=== PATIENT | male | born 1975 | race Caucasian/White ===

== ENCOUNTER 2017-05-02 18:22 | Emergency (ER) | payer OTHER ==
[~2017-05-02] VITALS: Ht 198.1 cm; Wt 104.3 kg
[2017-05-02 19:50] VITALS: BP 135/89
[2017-05-02 19:53] LABS: MEAN CORPUSCULAR HEMOGLOBIN 34.5 PG (27.0-31.0); MEAN CORPUSCULAR HGB CONC 31.6 G/DL (32.0-36.0); MEAN CORPUSCULAR VOLUME 109 FL (80-99); MEAN PLATELET VOLUME 12.6 FL (6.5-10.1); PLATELET COUNT 85 K/UL (150-450); RED BLOOD COUNT 3.91 M/UL (4.70-6.10); RED CELL DISTRIBUTION WIDTH 14.1 % (11.6-14.8); WHITE BLOOD COUNT 5.7 K/UL (4.8-10.8)
[2017-05-02 20:23] LABS: ALANINE AMINOTRANSFERASE 154 U/L (12-78); ALCOHOL < 3 mg/dL; ANION GAP 10 (5-15); ASPARTATE AMINO TRANSFERASE 430 U/L (15-37); CALCIUM 8.3 MG/DL (8.5-10.1); CARBON DIOXIDE 29 MMOL/L (21-32); CHLORIDE 90 MMOL/L (98-107); CKMB 0.7 NG/ML (0.0-3.6); CREATININE 0.8 MG/DL (0.55-1.30); GLOMERULAR FILTRATION RATE > 60 mL/min (>60); SODIUM 129 MMOL/L (136-145); TOTAL PROTEIN 7.3 G/DL (6.4-8.2)
[2017-05-02 20:25] LABS: ACETAMINOPHEN < 10.0 MCG/ML (10-30)
[2017-05-02 21:02] LABS: BILIRUBIN,DIRECT 0.7 MG/DL (0.0-0.3)
[2017-05-02 21:05] LABS: BAND NEUTROPHILS % (MANUAL) 3 % (0-8); EOSINOPHILS % (MANUAL) 1 % (0-3); LYMPHOCYTES % (MANUAL) 26 % (20-45); NEUTROPHILS % (MANUAL) 64 % (45-75); TOTAL CELLS COUNTED 100
[2017-05-02 21:06] LABS: ANISOCYTOSIS 1+; POLYCHROMASIA 1+
[2017-05-02 21:07] LABS: MACROCYTES 2+; PLATELET MORPHOLOGY NORMAL
[2017-05-02 21:08] LABS: BASOPHILS % (MANUAL) 0 % (0-2); PLATELET ESTIMATE DECREASED
[2017-05-02 21:28] VITALS: BP 135/89
--- NOTE | 2017-05-02 22:58 | Emergency Room Report ---
History of Present Illness General Chief Complaint: Seizure Source: Patient Present Illness HPI 42-year-old male presents ED for evaluation. Per EMS patient had a witnessed seizure at grocery store. Last for several seconds. Upon arrival patient states he feels okay. Does not remember what happened. Patient denies any history of seizures. Denies any headaches, blurry vision. Denies any fevers or chills. Patient has history of anxiety past takes Zoloft and takes Xanax. States his last drink was 5 days ago. Patient does not drink everyday but states he does drink often. No other aggravating or relieving factors. Denies any other associated symptoms Allergies: Coded Allergies: No Known Allergies (Unverified , 05/02/17) Patient History Past Medical History: psych hx Past Surgical History: none Pertinent Family History: none Social History: Denies: smoking, alcohol use, drug use Immunizations: UTD Reviewed Nursing Documentation: PMH: Agreed, PSxH: Agreed Nursing Documentation-PMH Past Medical History: No Stated History Review of Systems All Other Systems: negative except mentioned in HPI Physical Exam Vital Signs Date Time Temp Pulse Resp B/P (MAP) Pulse Ox O2 Delivery O2 Flow Rate FiO2 05/02/17 18:27 98.4 91 18 107/70 97 Room Air Sp02 EP Interpretation: reviewed, normal General Appearance: no apparent distress, alert, GCS 15, non-toxic Head: normocephalic, atraumatic Eyes: bilateral eye normal inspection, bilateral eye PERRL ENT: hearing grossly normal, normal pharynx, no angioedema, normal voice Neck: full range of motion, supple/symm/no masses Respiratory: chest non-tender, lungs clear, normal breath sounds, speaking full sentences Cardiovascular #1: regular rate, rhythm, no edema Cardiovascular #2: 2+ carotid (R), 2+ carotid (L), 2+ radial (R), 2+ radial (L) , 2+ dorsalis pedis (R), 2+ dorsalis pedis (L) Gastrointestinal: normal bowel sounds, non tender, soft, non-distended, no guarding, no rebound Rectal: deferred Genitourinary: normal inspection, no CVA tenderness Musculoskeletal: back normal, gait/station normal, normal range of motion, non- tender Neurologic: alert, oriented x3, responsive, motor strength/tone normal, sensory intact, speech normal Psychiatric: judgement/insight normal, memory normal, mood/affect normal, no suicidal/homicidal ideation Reflexes: 3+ bicep (R), 3+ bicep (L), 3+ tricep (R), 3+ tricep (L), 3+ knee (R) , 3+ knee (L) Skin: normal color, no rash, warm/dry, well hydrated Lymphatic: no adenopathy Medical Decision Making Diagnostic Impression: Primary Impression: Seizure disorder ER Course Hospital Course 42-year-old M presents to ED status post seizure Differential diagnosis includes- breakthrough seizure, alcohol abuse, intracranial injury Clinical course Patient placed on stretcher. Initial history and physical I ordered labs, IV fluids, CT brain Labs-K 3.0, no leukocytosis, hemoglobin/hematocrit stable. EKG - NSR, no acute ischemic changes interpreted by me CT Brain ok Potassium repleted. I discussed findings with patient. Seizure could be related to alcohol withdrawal versus anxiety. I did offer patient option for admission but he declined. Patient states he will followup with his PMD I did give patient referral options for PMD if he is unable to contact his doctor Patient allowed to rest is now awake alert oriented x3. ambulating without difficulty. Family is at bedside and can take patient home. Diagnosis - seizure disorder stable and discharged to home. Followup with PMD. Return to ED if symptoms recur or worsen Labs Test 05/02/17 19:27 White Blood Count 5.7 K/UL (4.8-10.8) Red Blood Count 3.91 M/UL (4.70-6.10) Hemoglobin 13.5 G/DL (14.2-18.0) Hematocrit 42.8 % (42.0-52.0) Mean Corpuscular Volume 109 FL (80-99) Mean Corpuscular Hemoglobin 34.5 PG (27.0-31.0) Mean Corpuscular Hemoglobin Concent 31.6 G/DL (32.0-36.0) Red Cell Distribution Width 14.1 % (11.6-14.8) Platelet Count 85 K/UL (150-450) Mean Platelet Volume 12.6 FL (6.5-10.1) Neutrophils (%) (Auto) % (45.0-75.0) Lymphocytes (%) (Auto) % (20.0-45.0) Monocytes (%) (Auto) % (1.0-10.0) Eosinophils (%) (Auto) % (0.0-3.0) Basophils (%) (Auto) % (0.0-2.0) Differential Total Cells Counted 100 Neutrophils % (Manual) 64 % (45-75) Lymphocytes % (Manual) 26 % (20-45) Monocytes % (Manual) 6 % (1-10) Eosinophils % (Manual) 1 % (0-3) Basophils % (Manual) 0 % (0-2) Band Neutrophils 3 % (0-8) Platelet Estimate Decreased Platelet Morphology Normal Polychromasia 1+ Anisocytosis 1+ Macrocytosis 2+ Sodium Level 129 MMOL/L (136-145) Potassium Level 3.0 MMOL/L (3.5-5.1) Chloride Level 90 MMOL/L (98-107) Carbon Dioxide Level 29 MMOL/L (21-32) Anion Gap 10 (5-15) Blood Urea Nitrogen 6 mg/dL (7-18) Creatinine 0.8 MG/DL (0.55-1.30) Estimat Glomerular Filtration Rate > 60 mL/min (>60) Glucose Level 134 MG/DL (74-106) Calcium Level 8.3 MG/DL (8.5-10.1) Total Bilirubin 1.8 MG/DL (0.2-1.0) Direct Bilirubin 0.7 MG/DL (0.0-0.3) Aspartate Amino Transf (AST/SGOT) 430 U/L (15-37) Alanine Aminotransferase (ALT/SGPT) 154 U/L (12-78) Alkaline Phosphatase 164 U/L (46-116) Total Creatine Kinase 213 U/L (26-308) Creatine Kinase MB 0.7 NG/ML (0.0-3.6) Creatine Kinase MB Relative Index 0.3 Troponin I 0.000 ng/mL (0.000-0.056) Total Protein 7.3 G/DL (6.4-8.2) Albumin 3.6 G/DL (3.4-5.0) Globulin 3.7 g/dL Albumin/Globulin Ratio 1.0 (1.0-2.7) Salicylates Level 0 ug/mL (2.8-20) Acetaminophen Level < 10.0 MCG/ML (10-30) Serum Alcohol < 3 mg/dL EKG Diagnostic Results Rate: normal Rhythm: NSR ST Segments: no acute changes ASA given to the pt in ED: No Rhythm Strip Diag. Results EP Interpretation: yes Rhythm: NSR, no PVC's, no ectopy CT/MRI/US Diagnostic Results CT/MRI/US Diagnostic Results : Imaging Test Ordered: CT head Impression no acute process Last Vital Signs Date Time Temp Pulse Resp B/P (MAP) Pulse Ox O2 Delivery O2 Flow Rate FiO2 05/02/17 21:28 98.4 87 21 135/89 100 Room Air Status: improved Disposition: HOME, SELF-CARE Condition: Stable Referrals: HOLLY CHAVEZ M.D. NOT CHOSEN [facility]/,REFERRING (PCP) Howard Cotter MD Patient Instructions: Seizure, Adult RUDDY HAYWARD M.D. May 02, 2017 22:58
--- NOTE | 2017-05-03 09:52 | Diagnostic Imaging Report ---
Indications: Seizure Technique: Spiral acquisitions obtained through the brain. Angled axial and coronal 5 x 5 mm slices were reconstructed. Total dose length product 1379 mGycm. CTDI vol(s) 7 mGy. Dose reduction achieved using automated exposure control Comparison: None Findings: There is enlargement of the ventricles and extra-axial CSF spaces, advanced for age. No acute hemorrhage or edema. No mass effect or midline shift. Normal fraser-white differentiation. There is a slight deformity of the left nasal bone, possibly old fracture deformity. Intact calvarium. Visualized orbits and sinuses are unremarkable. Impression: Negative for acute intracranial bleed or mass effect Cerebral volume loss, advanced for age This agrees with the preliminary interpretation provided overnight by [facility] service. The CT scanner at [facility] is accredited by the [employer] and the scans are performed using protocols designed to limit radiation exposure to as low as reasonably achievable to attain images of sufficient resolution adequate for diagnostic evaluation.
--- NOTE | 2017-05-13 15:42 | Cardiology Report ---
APPROVED REPORT EKG Measurement Heart [id number] Normal sinus rhythm Normal ECG
== END 2017-05-02 21:29 | disposition home or self-care (01) ==
LOC: EDBD 18:22 → EMR 18:44
DX: G40.909 Epilepsy, unspecified, not intractable, without status epilepticus (principal)
CPT/HCPCS: 36415; 70450; 80053; 82248; 82550; 82553; 84484; 85007; 85025; 93005; 96360; 99284; G0480; 80329; J8499